=== PATIENT | male | born 1980 | race African-American/Black ===

== ENCOUNTER → 2022-03-09 13:33 | Outpatient (CLI) | payer OTHER, SELFPAY ==
--- NOTE | 2022-03-09 13:43 | DI.MRI.S_ITS ---
PROCEDURE: MR KNEE LT WO CON INDICATIONS: LEFT KNEE PAIN TECHNIQUE: Noncontrast sagittal PD fast spin echo and T2 fast spin echo with fat saturation, sagittal 3-D FLASH with fat saturation; coronal T1 spin echo and PD fast spin echo with fat saturation, and axial PD fast spin echo with fat saturation through the knee. COMPARISON: None. FINDINGS: Image quality: Excellent. Menisci: The lateral meniscus is intact. Deficiency of the posterior horn, medial meniscus. The medial meniscus is extruded by approximately 5.3 mm. Cruciate ligaments: The anterior and posterior cruciate ligaments appear intact. Medial structures: The medial collateral ligament appears intact. Visualized portions of the pes anserinus tendons appear normal. No abnormal bursal fluid. Lateral structures: The lateral collateral ligament complex appears intact. The popliteus tendon appears normal. Iliotibial band appears normal. Anterior structures: The quadriceps and patellar tendons appear intact. Patellar alignment is normal. No femoral trochlear dysplasia or ventral trochlear prominence. No edema in the infrapatellar fat pad. Bones and cartilage: No bone marrow contusions or fractures. T2 hyperintense/T1 hypointense signal is seen in the medial tibial plateau, compatible with fibrocystic change secondary to osteochondral injury. An additional 5.4 mm T2 hyperintense/T1 hypointense lesion is seen in the proximal fibula, which is nonspecific may reflect an enchondroma. Thinning and signal heterogeneity of the hyaline cartilage, most prominent in the medial compartment. Tricompartment osteophytosis. Joint space: Small knee joint fluid. No substantial Hunt's cyst. IMPRESSION: 1. Deficiency of the posterior horn, medial meniscus with extrusion, compatible tear tear and/or meniscectomy. Dictated by: Matt Madison M.D. on 03/10/2022 at 8:30 Approved by: Matt Madison M.D. on 03/10/2022 at 8:39
== END ==
PROVIDERS: Referring Provider Family Medicine; Visit Provider Family Medicine
DX: M25.562 Pain in left knee (principal)
CPT/HCPCS: 73721

== ENCOUNTER → 2022-08-02 13:52 | Outpatient (CLI) | payer OTHER, SELFPAY ==
--- NOTE | 2022-08-02 | DI.MRI.S_ITS ---
PROCEDURE: MR THORACIC SPINE WO CON INDICATIONS: CERVICAL RADICULOPATHY TECHNIQUE: Noncontrast sagittal T1 spine echo and T2 fast spin echo, sagittal STIR, and T2 fast spin echo through the thoracic spine. COMPARISON: None. FINDINGS: Image quality: Excellent. Alignment and Curvature: There is normal bony alignment. Bone Marrow: Marrow is of normal overall signal. No acute vertebral body compression fractures. Spinal Cord: Visualized spinal cord is normal in size and signal. Paraspinous Soft Tissues: No paravertebral masses. Miscellaneous: On axial images, central canal and foramina appear widely patent at all scanned levels. IMPRESSION: Normal MR thoracic spine Approved by: Maxime Bush M.D. on 08/05/2022 at 11:08
--- NOTE | 2022-08-02 | DI.MRI.S_ITS ---
PROCEDURE: MR CERVICAL SPINE WO CON INDICATIONS: CERVICAL RADICULOPATHY TECHNIQUE: Noncontrast sagittal T1 spin echo and T2 fast spin echo, sagittal STIR, foraminal oblique sagittal T2 fast spin echo, and axial gradient echo or T2 fast spin echo through the cervical spine. COMPARISON: None. FINDINGS: Image quality: Excellent. Alignment and Curvature: There is reversal the normal cervical lordosis centered at C6-7 Bone Marrow: Marrow demonstrates normal overall signal. Spinal Cord: As below. No cerebellar tonsillar herniation. Paraspinous Soft Tissues: No paravertebral masses. Prevertebral soft tissues are normal in thickness. C2-C3: Normal appearance. C3-C4: Disc height is maintained. Posterior disc osteophyte complex results in mild central stenosis with minimal flattening the ventral surface of the cord. No cord edema or foraminal stenosis C4-C5: Disc space is maintained. Posterior disc osteophyte complex results in mild central and no foraminal stenosis. C5-C6: Disc height is maintained. No central or foraminal stenosis. C6-C7: Disc space narrowing with posterior disc osteophyte complex and anterior osteophyte results in moderate central stenosis with flattening the ventral surface of the cord, and internal cord hyperintensity reflecting cord edema or gliosis. C7-T1: Normal appearance. IMPRESSION: 1. Degenerative disc osteophyte complex at C6-7 results in moderate central spinal stenosis, flattening the ventral surface of the cord, and internal cord hyperintensity reflecting cord edema and/or gliosis. Approved by: Maxime Bush M.D. on 08/05/2022 at 10:42
== END ==
PROVIDERS: Referring Provider Internal Medicine; Visit Provider Internal Medicine
DX: M48.02 Spinal stenosis, cervical region (principal); M54.12 Radiculopathy, cervical region; M25.78 Osteophyte, vertebrae
CPT/HCPCS: 72141; 72146

== ENCOUNTER 2022-09-09 16:13 | Emergency (ER) | payer OTHER, SELFPAY ==
[2022-09-09 16:18] VITALS: BP 120/58; PULSE 59; RESP 16; TEMP 36.6; O2SAT 96
--- NOTE | 2022-09-09 16:26 | DI.RAD.S_ITS ---
PROCEDURE: XR CHEST 1V INDICATIONS: Chest pain TECHNIQUE: One view of the chest was acquired. COMPARISON: None. FINDINGS: Surgical changes and devices: None. Lungs and pleura: Lungs are clear. No pleural effusions or pneumothorax. Mediastinum: Mediastinal contours appear normal. Heart size is normal. Bones and chest wall: No suspicious bony lesions. Overlying soft tissues appear unremarkable. IMPRESSION: No acute finding. Dictated by: Juni Mckenzie M.D. on 09/09/2022 at 16:52 Approved by: Juni Mckenzie M.D. on 09/09/2022 at 16:52
[2022-09-09 16:56] LABS: Add Manual Diff / Slide Review NO; Basophils Absolute Auto 100 /uL (0-100); Basophils Percent Auto 1.2 % (0-2); Eosinophils Absolute Auto 100 /uL (0-450); Eosinophils Percent Auto 2.1 % (2-4); Hematocrit 41.8 % (41-53); Hemoglobin 13.7 g/dL (13.5-17.5); Lymphocytes Absolute Auto 2000 /uL (1100-4500); Mean Corpuscular HGB Conc 32.7 % (30-36); Mean Corpuscular Hemoglobin 23.2 PG (26-34); Mean Corpuscular Volume 70.8 fL (80-100); Monocytes Absolute Auto 500 /uL (0-900); Monocytes Percent Auto 7.6 % (3-14); Neutrophils Absolute Auto 3400 /uL (1500-7000); Neutrophils Percent Auto 56.1 % (50-75); Platelet Count 146 X10^3/uL (150-400); Red Cell Distribution Width 14.4 % (11.6-14.8); White Blood Cell Count 6.1 X10^3/uL (4.5-11.0)
[2022-09-09 17:02] LABS: Alanine Aminotransferase 22 IU/L (<50); Albumin 4.4 g/dL (3.5-5.0); Albumin Globulin Ratio 1.5 (1.0-2.8); Alkaline Phosphatase 81 U/L (38-126); Aspartate Aminotransferase 30 IU/L (17-59); BUN Creatinine Ratio 24.3 (6-22); Bilirubin Total 0.9 mg/dL (0.2-1.3); Blood Urea Nitrogen 26 mg/dL (9-20); Calcium 8.7 mg/dL (8.4-10.2); Carbon Dioxide 26 mmol/L (22-32); Chloride 105 mmol/L (98-107); Creatine Kinase 194 U/L (55-170); Estimated Glomerular Filt Rate > 60 mL/min (>60); Globulin 2.9 g/dL (1.7-4.1); Glucose 133 mg/dL (70-100); HEMOLYSIS 16 (0-50); Lipase 388 U/L (23-300); Magnesium 2.2 mg/dL (1.6-2.3); Potassium 3.8 mmol/L (3.4-5.1); Sodium 139 mmol/L (137-145); Total Protein 7.3 g/dL (6.3-8.2)
[2022-09-09 17:13] LABS: Troponin I < 0.012 ng/mL (0.01-0.034)
[2022-09-09 17:17] LABS: CKMB % Relative Index 0.5 % (1.5-5.0); Creatine Kinase MB 1.03 ng/mL (<2.37)
[2022-09-09 22:17] VITALS: PULSE 48; RESP 20
[2022-09-09 22:19] VITALS: BP 142/71; PULSE 54; RESP 24; O2SAT 100
[2022-09-09 22:30] VITALS: BP 152/92; PULSE 54; RESP 24; O2SAT 99
--- NOTE | 2022-09-09 22:44 | ED_ITS ---
HPI - Arrhythmia/Palpitations General Chief Complaint: Arrhythmia/Palpitations Stated Complaint: lt sided arm numbness, does not feel good Time Seen by Provider: 09/09/22 22:29 Source: patient Mode of arrival: Ambulatory History of Present Illness HPI narrative: Patient is a healthy 42-year-old male who presents with left arm tingling num bness and weakness. It has been ongoing for a while. He actually had outpatient MRI of the cervical spine and thoracic spine which did show degenerative disc osteophyte at C6 and C7 with central spinal stenosis and flattening of the ventral cord. Patient now reports that his left arm is getting weaker. He type to the computer for work and feels like his left arm gets tired quickly any quickly need a break. It is definitely more positional. He also is reporting some chest palpitations sometimes it is associated with his left arm sometimes not. No dizziness or lightheadedness. He has not taken anything for pain. He has been referred to Neurology and Spine but his appointments are still a month away. Related Data Previous Rx's Medication Instructions Recorded cyclobenzaprine 5 mg tablet 5 mg PO TID PRN muscle spasm #10 09/09/22 tabs gabapentin 300 mg capsule 300 mg PO BEDTIME #30 caps 09/09/22 hydrocodone 5 mg-acetaminophen 325 1 tab PO Q6H PRN pain #10 tabs 09/09/22 mg tablet prednisone 20 mg tablet 40 mg PO DAILY #10 tabs 09/09/22 Allergies Allergy/AdvReac Type Severity Reaction Status Date / Time No Known Drug Allergies Allergy Verified 09/09/22 23:50 Review of Systems Review of Systems Narrative: GENERAL: Denies chills, fatigue, malaise, fever, sweats, travel HEENT: Denies sinus pain, ear pain, sore throat, difficulty swallowing, neck pain RESPIRATORY: Denies dyspnea, cough, wheezing, hemoptysis, sputum. CARDIOVASCULAR: See HPI GASTROINTESTINAL: Denies nausea, vomiting, abdominal pain, diarrhea, constipation, melena. : Denies dysuria, frequency, incontinence, hematuria, urinary retention, flank pain. MUSCULOSKELETAL: See HPI SKIN: No rash, no erythema, no pruritus NEUROLOGIC: Denies weakness, dizziness, headache, numbness, change in speech, confusion PSYCHIATRIC: No concerning psychosocial issues. 12 point review of systems is negative except for those stated above and HPI Exam Initial Vital Signs Initial Vital Signs: Vital Signs Temperature 97.9 F 09/09/22 16:18 Pulse Rate 59 L 09/09/22 16:18 Respiratory Rate 16 09/09/22 16:18 Blood Pressure 120/58 L 09/09/22 16:18 Pulse Oximetry 96 09/09/22 16:18 Oxygen Delivery Method 09/09/22 16:18 GENERAL: Healthy 42-year-old male no acute distress HEENT: Head atraumatic,EOMI, pupils reactive, face symmetric, moist mucous membranes CARDIOVASCULAR: Regular rate and rhythm without murmurs, rubs or gallops. RESPIRATORY: Breath sounds equal bilaterally, no wheezes rales or rhonchi. ABDOMEN: Soft, nontender. Normoactive bowel sounds all 4 quadrants. No guarding or rebound. EXTREMITIES: Normal range of motion, no clubbing or edema. Neurovascularly intact Pain is reproducible to touch over all left scapular area. No obvious muscle s pasm felt NEUROLOGICAL: Alert and oriented x4.Normal gait and speech. Cranial nerves II through XII grossly intact. 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 He has numbness more in the ulnar distribution SKIN: Warm, dry, no laceration, no petechiae, no rashes or lesions. Scores HEART Score Heart Score history: Slightly Suspicious Heart Score EKG: Normal Heart Score Age: < 45 years old Heart Score risk factors: No known risk factors Heart Score troponin: < or = to normal limit Heart Score Total: 0 Course Orders Ordered: ED Orders 09/09/22 22:31 EKG-12 Lead Stat 09/09/22 22:34 Troponin I Stat Discontinued Medications Hydrocodone Bitart/Acetaminophen (Hydrocodone/Acet 5/325 Prepack) 1 bottle MISC SEEINSTR ONE Stop: 09/09/22 23:33 Last Admin: 09/09/22 23:49 Dose: 1 bottle Documented By: STANISLAW Cyclobenzaprine HCl (Cyclobenzaprine 10 Mg Prepack) 1 bottle MISC SEEINSTR ONE Stop: 09/09/22 23:34 Last Admin: 09/09/22 23:49 Dose: 1 bottle Documented By: STANISLAW Ketorolac Tromethamine (Ketorolac 30 Mg/Ml Vial) 30 mg IM NOW ONE Stop: 09/09/22 23:35 Last Admin: 09/09/22 23:49 Dose: 30 mg Documented By: ADK Vital Signs Vital signs: Vital Signs - 8 hr 09/09/22 22:17 09/09/22 22:19 09/09/22 22:19 Pulse Rate 48 L 54 L Respiratory Rate 20 24 Blood Pressure 142/71 H Pulse Oximetry 100 Oxygen Delivery Method 09/09/22 22:30 09/09/22 22:30 09/09/22 23:00 Pulse Rate 54 L Respiratory Rate 24 Blood Pressure 152/92 H 138/64 Pulse Oximetry 99 Oxygen Delivery Method Room Air 09/09/22 23:00 09/09/22 23:30 Pulse Rate 48 L 55 L Respiratory Rate 21 24 Blood Pressure Pulse Oximetry 99 99 Oxygen Delivery Method MDM - Arrhythmia/Palpitations Lab Data Result diagrams: 09/09/22 16:33 09/09/22 16:33 Labs: Lab Results 09/09/22 09/09/22 09/09/22 Range/Units 16:33 16:33 22:34 WBC 6.1 (4.5-11.0) X10^3/uL RBC 5.90 (4.5-5.9) X10^6/uL Hgb 13.7 (13.5-17.5) g/dL Hct 41.8 (41-53) % MCV 70.8 L (80-100) fL MCH 23.2 L (26-34) PG MCHC 32.7 (30-36) % RDW 14.4 (11.6-14.8) % Plt Count 146 L (150-400) X10^3/uL Neut % (Auto) 56.1 (50-75) % Lymph % (Auto) 33.0 (25-40) % Hoke % (Auto) 7.6 (3-14) % Eos % (Auto) 2.1 (2-4) % Baso % (Auto) 1.2 (0-2) % Neut # (Auto) 3400 (0625-7479) /uL Lymph # (Auto) 2000 (9495-9102) /uL Hoke # (Auto) 500 (0-900) /uL Eos # (Auto) 100 (0-450) /uL Baso # (Auto) 100 (0-100) /uL Sodium 139 (137-145) mmol/L Potassium 3.8 (3.4-5.1) mmol/L Chloride 105 (98-107) mmol/L Carbon Dioxide 26 (22-32) mmol/L BUN 26 H (9-20) mg/dL Creatinine 1.07 (0.66-1.25) mg/dL Estimated GFR > 60 (>60) mL/min BUN/Creatinine Ratio 24.3 H (6-22) Glucose 133 H (70-100) mg/dL Calcium 8.7 (8.4-10.2) mg/dL Magnesium 2.2 (1.6-2.3) mg/dL Total Bilirubin 0.9 (0.2-1.3) mg/dL AST 30 (17-59) IU/L ALT 22 (<50) IU/L Alkaline Phosphatase 81 (38-126) U/L Total Creatine Kinase 194 H (55-170) U/L CK-MB (CK-2) 1.03 (<2.37) ng/mL CK-MB (CK-2) Rel Index 0.5 L (1.5-5.0) % Troponin I < 0.012 < 0.012 (0.01-0.034) ng/mL Total Protein 7.3 (6.3-8.2) g/dL Albumin 4.4 (3.5-5.0) g/dL Globulin 2.9 (1.7-4.1) g/dL Albumin/Globulin Ratio 1.5 (1.0-2.8) Lipase 388 H (23-300) U/L Imaging Data Chest x-ray: Radiologist's Impresson: ?Jerry Guerra MR#: [id number] : 1980 Acct:[id number] Age/Sex: 42 / M Date of Service: 09/09/22 Loc: Accession Number: [id number] ?? Procedure: XR chest 1V Ordering Provider: Tammie Medina D.O. PROCEDURE:? XR CHEST 1V ? INDICATIONS:? Chest pain ? TECHNIQUE:? One view of the chest was acquired.? ? COMPARISON:? None. ? FINDINGS:? ? Surgical changes and devices:? None.? ? Lungs and pleura:? Lungs are clear.? No pleural effusions or pneumothorax.? ? Mediastinum:? Mediastinal contours appear normal.? Heart size is normal.? ? Bones and chest wall:? No suspicious bony lesions.? Overlying soft tissues appear unremarkable.? ? IMPRESSION:? No acute finding. ? ? Dictated by: Juni Mckenzie M.D. on 09/09/2022 at 16:52 ? ? ECG Data Interpretation: Normal sinus rhythm rate 51 TX interval 178 QRS [address] changes no T- wave inversion EKG 2. Normal sinus rhythm rate 50 similar to prior MDM Narrative Medical decision making narrative: Patient has known nerve compression C6-C7 region. It is causing left sided weakness. Will start him on prednisone and gabapentin is. He was having some chest pain palpitations but no risk factors low heart score 0- troponins and very normal EKGs. He certainly is having some reproducible pain in his left scapular region. It is definitely improved with massage. Given Toradol here in the ED along with his prescriptions for pain medication is gabapentin prednisone and muscle spasm. He does have outpatient follow-up with specialist as. MRI 08/05/22 IMPRESSION:? ? 1. Degenerative disc osteophyte complex at C6-7 results in moderate central spinal stenosis, flattening the ventral surface of the cord, and internal cord hype rintensity reflecting cord edema and/or gliosis. ? ? ? Approved by: Maxime Bush M.D. on 08/05/2022 at 10:42? Discharge Plan Departure Patient Disposition: Home Clinical Impression: Peripheral neuropathy, Heart palpitations Activity Restrictions/Additional Instructions: *You have been diagnosed with peripheral neuropathy *What to do: At this time you do have a pinched nerve which is causing weakness and numbness tingling in your left hand. You do need to see be seen by Spine surgery. *Continue to take medications as directed Gabapentin 300 mg at night, this can make you sleepy Prednisone 40 mg once a day for 5 days morning [place] 1 tablet every 6 hours only if needed for severe pain, especially at night Flexeril 5-10 mg every 8 hours if needed for muscle spasm this can cause drowsiness and sleepiness do not recommend working while taking *Follow up with your primary care provider in 2-3 days or call [phone] *Return to ER if you should have loss of urine is or stool, increased weakness, chest pain palpitation or any new, worsening or concerning symptoms CONTROLLED SUBSTANCE DISCHARGE (Narcotoic/benzodiazepine/Flexeril/Phenergan) 1. You have been prescribed narcotic medications, it does have acetaminophen/Tylenol/paracetamol in it, DO NOT TAKE MORE THAN 4,00mg in 24 hour s of Tylenol. TRAMADOL DOES NOT CONTAIN TYLENOL 2. Please understand that we cannot provide further refills of narcotics, benzodiazepines or controlled substances through the ED and her pain management will need to be through your provider. 3. While on these medications you cannot drive or operate heavy machinery. 4. You cannot sign legal documents or perform any duties such as this. 5. As long as you're taking opiate pain medications he should also be taking a stool softener such as Colace, Dulcolax, MiraLAX or prune juice, to help avoid constipation. Prescriptions: New hydrocodone-acetaminophen 5-325 mg tablet 1 tab PO Q6H PRN (Reason: pain) Qty: 10 0RF prednisone 20 mg tablet 40 mg PO DAILY Qty: 10 0RF gabapentin 300 mg capsule 300 mg PO BEDTIME Qty: 30 0RF cyclobenzaprine 5 mg tablet 5 mg PO TID PRN (Reason: muscle spasm) Qty: 10 0RF Referrals: ProviderAbhijeet [Primary Care Provider] - Visit Report Forms: Patient Portal/API
[2022-09-09 23:00] VITALS: BP 138/64; PULSE 48; RESP 21; O2SAT 99
[2022-09-09 23:04] LABS: Troponin I < 0.012 ng/mL (0.01-0.034)
[2022-09-09 23:30] VITALS: PULSE 55; RESP 24; O2SAT 99
[2022-09-09] MEDS: CYCLOBENZAPRINE 10 MG PREPACK 1 BOTTLE MISC (23:49)
[2022-09-09] MEDS: KETOROLAC 30 MG/ML VIAL IM (23:49)
[2022-09-09] MEDS: HYDROCODONE/ACET 5/325 PREPACK 1 BOTTLE MISC (23:49)
== END 2022-09-09 23:50 | disposition home or self-care (01) ==
PROVIDERS: Emergency Medicine; Emergency Provider Emergency Medicine
DX: G62.9 Polyneuropathy, unspecified (principal); R00.2 Palpitations; M50.323 Other cervical disc degeneration at C6-C7 level; R07.9 Chest pain, unspecified
CPT/HCPCS: 36415; 71045; 80053; 82550; 82553; 83690; 83735; 84484; 85025; 93005; 93010; 96372; 99284; J1885

== ENCOUNTER → 2022-10-18 11:22 | Outpatient (CLI) | payer OTHER, SELFPAY ==
--- NOTE | 2022-10-18 11:24 | DI.CT.S_ITS ---
PROCEDURE: CT CERVICAL SPINE WO CON INDICATIONS: OTHER SPONDOLOSIS WITH MYELOPATHY, CERVICAL REGION TECHNIQUE: Noncontrast 3 mm thick sections acquired from the skull base to the T4 level. Sagittal and coronal reformats were then constructed. For radiation dose reduction, the following was used: automated exposure control, adjustment of mA and/or kV according to patient size. COMPARISON: None. FINDINGS: Image quality: Excellent. Bones: No fractures or dislocations. Visualized superior ribs are intact. C6 vertebral body chronic height loss. C6-7 disc space narrowing and anterior osteophyte present. Hypertrophic uncovertebral joints. Moderate central stenosis. Reversal normal cervical lordosis present. Craniovertebral relationships normal. Soft tissues: Prevertebral soft tissues are normal in thickness. No paravertebral hematomas. No apical pneumothoraces. IMPRESSION: No evidence of fracture or traumatic malalignment. Multilevel degenerative disc disease and arthropathy associated moderate central stenosis C6-7 Approved by: Maxime Bush M.D. on 10/18/2022 at 15:12
--- NOTE | 2022-10-18 11:47 | DI.RAD.S_ITS ---
PROCEDURE: XR CERVICAL SPINE 4V OR 5V INDICATIONS: Pain TECHNIQUE: 5 views of the cervical spine were acquired. COMPARISON: [facility], MR, MR CERVICAL SPINE WO CON, 08/02/2022, 14:38. FINDINGS: Bones: C6 vertebral body height loss degenerative disc disease at C6-7. Reversal normal cervical lordosis noted. No evidence of segmental instability Soft tissues: Prevertebral soft tissues are normal in thickness. IMPRESSION: C6-7 degenerative disc disease and arthropathy without evidence of segmental instability Approved by: Maxime Bush M.D. on 10/18/2022 at 12:58
== END ==
PROVIDERS: Referring Provider Physician Assistant; Visit Provider Physician Assistant
DX: M47.12 Other spondylosis with myelopathy, cervical region (principal); M50.023 Cervical disc disorder at C6-C7 level with myelopathy
CPT/HCPCS: 72050; 72125